=== PATIENT | female | born 1990 | race Hispanic/Latino ===

== ENCOUNTER 2017-10-28 20:00 | Emergency (ER) | payer BC, OTHER ==
[2017-10-28 20:23] VITALS: BP 146/76; PULSE 106; RESP 16; TEMP 98.6; O2SAT 100
[2017-10-28] MEDS ORDERED: cefTRIAXone (Rocephin) 250 mg Inj IM STA (20:39)
--- NOTE | 2017-10-28 21:30 | ED PDOC ---
HPI: General Adult Time Seen by Provider: 10/28/17 20:27 Chief Complaint (Nursing): Abnormal Labs Chief Complaint (Provider): Abnormal Labs History Per: Patient History/Exam Limitations: no limitations Additional Complaint(s): 26 year old female presents to ED for STD test for gonorrhea. Patient reports her significant other was recently dx and tx for gonorrhea a few weeks ago. No medical complaints at this time. Reports no abdominal pain, vaginal discharge, genital rash or lesions. PCP: None provided Past Medical History Reviewed: Historical Data, Nursing Documentation, Vital Signs Vital Signs: Last Vital Signs Temp 98.6 F 10/28/17 20:19 Pulse 106 H 10/28/17 20:19 Resp 16 10/28/17 20:19 BP 146/76 10/28/17 20:19 Pulse Ox 100 10/28/17 21:39 - Medical History PMH: Kidney Stones, Migraine - Surgical History Surgical History: No Surg Hx - Family History Family History: States: Unknown Family Hx - Social History Current smoker - smoking cessation education provided: No Alcohol: None Drugs: Denies - Home Medications Home Medications: Ambulatory Orders Medication Instructions Recorded Ciprofloxacin HCl [Cipro] 500 mg PO BID #10 tab 05/01/16 Tamsulosin [Flomax] 0.4 mg PO DAILY #5 cap 05/01/16 traMADol [Ultram] 50 mg PO Q8 #10 tab 05/01/16 - Allergies Allergies/Adverse Reactions: Allergies Allergy/AdvReac Type Severity Reaction Status Date / Time hydromorphone HCl Allergy ITCHING Verified 10/28/17 20:19 [From Dilaudid] Review of Systems ROS Statement: Except As Marked, All Systems Reviewed And Found Negative Physical Exam - Reviewed Nursing Documentation Reviewed: Yes Vital Signs Reviewed: Yes - Physical Exam Comments: GENERALIZED APPEARANCE:Patient is awake, alert, oriented x3 in no acute distress. SKIN: Warm, dry; (-) cyanosis. EYES: (+) EOMI ENMT: Mucous membranes moist. NECK: (-) tenderness, (-) stiffness, (-) lymphadenopathy. CHEST AND RESPIRATORY: (-) rales, (-) rhonchi, (-) wheezes; breath sounds equal bilaterally. HEART AND CARDIOVASCULAR: (-) irregularity; (-) murmur, (-) gallop. ABDOMEN AND GI: Soft; (-) distention, (-) tenderness EXTREMITIES: (-) deformity; (-) edema. Distal pulses: present. NEURO AND PSYCH: Mental status as above. ash handler: intact. Strength symmetric. Gait: normal. - ECG O2 Sat by Pulse Oximetry: 100 (RA) Pulse Ox Interpretation: Normal Medical Decision Making Medical Decision Makin:27 Initial Plan: --Chlamydia/GC Stat --Rocephin 250mg IM --Azithromycin 1000mg PO --POC Urine test 20:39 test was negative. GC urine test sent to lab. Patient advised results are pending and that she will be notified via phone call for any (+) results. Patient treated for recent gonorrhea exposure. Advised to follow up with primary care physician in 1-2 days without fail. Advised for further STD testing as an outpatient. Return to the emergency room at any time for any new or worsening symptoms. Patient states she fully agrees with and understands discharge instructions. States that she agrees with the plan and disposition. Verbalized and repeated discharge instructions and plan. I have given the patient opportunity to ask any additional questions. Scribe Attestation: Documented by Eduardo Merida acting as a scribe for Dede Erickson PA-C MD Scribe Attestation: All medical record entries made by the Scribe were at my direction and personally dictated by me. I have reviewed the chart and agree that the record accurately reflects my personal performance of the history, physical exam, medical decision making, and the department course for this patient. I have also personally directed, reviewed, and agree with the discharge instructions and disposition. Disposition - Clinical Impression Clinical Impression: Exposure to gonorrhea - Patient ED Disposition Is Patient to be Admitted: No Counseled Patient/Family Regarding: Studies Performed, Diagnosis, Need For Followup - Disposition Disposition: Routine/Home Disposition Time: 20:45 Condition: STABLE Additional Instructions: Thank you for letting us take care of you today. You were treated for exposure to gonorrhea. The emergency medical care you received today was directed at your acute symptoms. Return to the Emergency Department if your symptoms worsen , do not improve, or if you have any other problems. Please contact your doctor in 2 days for re-evaluation and follow up / or call one of the physicians/clinics you have been referred to that are listed on the Patient Visit Information form that is included in your discharge packet. Bring any paperwork you were given at discharge with you along with any medications you are taking to your follow up visit. Our treatment cannot replace ongoing medical care by a primary care provider (PCP) outside of the emergency department. Thank you for allowing the [facility] team to be part of your care today. If you had an STI test: It will take 48 hours for the results. Please call after 1 week if you have not heard back. Instructions: Chlamydia and Gonorrhea, Screening for Sexually Transmitted Infections Forms: [employer] (Nepali) - PA / REFORMATORY ATTENDANT / Resident Statement MD/DO has reviewed & agrees with the documentation as recorded.
== END 2017-10-28 21:24 | disposition home or self-care (01) ==
LOC: H.ER 20:00
DX: Z87.442 Personal history of urinary calculi (principal); Z20.2 Contact with and (suspected) exposure to infections with a predominantly sexual mode of transmission
CPT/HCPCS: 81025; 87491; 87591; 96372; 99281; J0696